=== PATIENT | female | born 1980 | race Hispanic/Latino ===

== ENCOUNTER 2019-02-05 10:56 | Outpatient (CLI) | payer BC, OTHER ==
--- NOTE | 2019-02-05 12:55 | ULT ---
OB ULTRASOUND: 02/05/19 HISTORY: Size and dates and anatomy. FINDINGS: A single live intrauterine gestation is seen with measurements corresponding to an estimated gestatio nal age of 20 weeks, 0 days and BEVERLY at 06/25/19. Estimated weight measures 338 grams or 12 oz. This corresponds to 86th percentile by Hadlock cr iteria. measurements are as follows: BPD 4.79 cm 20 weeks, 3 days HC 17.50 cm 20 weeks, 0 days AC 14.67 cm 20 weeks, 0 days FL 3.34 cm 20 weeks, 3 days heart rate measures 140 beats per minute. Amniotic fluid appears visually adequate. The placent a is posteriorly located without evidence of placenta previa. A three vessel cord, cord insertion, kidneys, bladder, stomach, four chamber heart, lateral norm tricles, cerebellum, spine, lips/nose, upper and lower extremities are visualized. No definite anomalies are seen. IMPRESSION: Single live IUP of 20 weeks estimated gestational age and BEVERLY at 06/25/19. POS: SHANNAN
== END 2019-02-05 10:57 | disposition home or self-care (01) ==
LOC: SCSULT 10:56
PROVIDERS: ATTEND Family Medicine
DX: Z34.82 Encounter for supervision of other normal pregnancy, second trimester (principal); Z3A.20 20 weeks gestation of pregnancy
CPT/HCPCS: 76805

== ENCOUNTER 2019-06-23 19:45 | Inpatient (IN) | payer BC, OTHER ==
[2019-06-23] MEDS ORDERED: Butorphanol Tartrate 1 MG/ML VIAL SLOW IVP PRN (20:34)
[2019-06-23] MEDS ORDERED: Ibuprofen 800 MG TAB PO PRN (20:34)
[2019-06-23] MEDS ORDERED: NS / Oxytocin 40 units/1000ml 1,000 ML IV PRN (20:34)
[2019-06-23] MEDS ORDERED: Ondansetron PF 4 MG/2 ML Vial IVP PRN (20:34)
[2019-06-23] MEDS ORDERED: Lidocaine 1% (PF) 30 ML VIAL SC PRN (20:34)
[2019-06-23] MEDS ORDERED: Promethazine HCl 25 MG/ML VIAL IM PRN (20:34)
[2019-06-23] MEDS ORDERED: Acetaminophen/Codeine 30-300mg Tablet PO PRN ×2 (20:34)
[2019-06-23] MEDS ORDERED: hydrALAZINE 20 MG/ML VIAL SLOW IVP PRN (20:34)
[2019-06-23] MEDS ORDERED: Acetaminophen 500 MG TAB PO PRN (20:34)
[2019-06-23] MEDS ORDERED: Meperidine HCl/PF 25 MG/ML VIAL IM/IV PRN (20:34)
[2019-06-23] MEDS ORDERED: Zolpidem Tartrate 5 MG TAB PO PRN (20:34)
[2019-06-23] MEDS ORDERED: Lactated Ringer's 1,000 ML IV SCH (20:45)
[2019-06-23] MEDS ORDERED: NS w/ Oxytocin 10 units 500 ML IV SCH (20:45)
[2019-06-23] MEDS ORDERED: Penicillin G 2.5 MILL.units 2.5 MILL.UNITS in Premix Bag 1 BAG IVPB SCH (20:45)
[2019-06-23] MEDS ORDERED: Penicillin G Potassium 5 MILL.UNITS in Sodium Chloride 0.9% 100 ML IVPB SCH (20:45)
[2019-06-23] MEDS: Lactated Ringer's 1,000 ML IV SCH (20:58)
[2019-06-23 21:16] LABS: Hemoglobin 11.7 g/dL (12.0-16.0); Mean Corpuscular HGB CONC 34.3 g/dL (32.0-36.0); Mean Corpuscular Hemoglobin 30.6 pg (27.0-31.0); Mean Corpuscular Volume 89.2 fL (78.0-98.0); Mean Platelet Volume 8.8 fL (7.4-10.4); Platelet Count 247 thou/uL (130-400); RBC Distribution Width 12.6 % (11.5-14.5); Red Blood Cell (RBC) Count 3.81 mill/uL (4.20-5.40); White Blood Cell (WBC) Count 8.2 thou/uL (4.8-10.8)
[2019-06-23] MEDS: Misoprostol 100 MCG TAB VAG SCH (21:20)
[2019-06-23 21:35] VITALS: BMI 43.2
[2019-06-23 21:43] LABS: Syphilis Antibody Nonreactive (Nonreactive); Syphilis Antibody Index 0.05 S/CO (<1.00 Non-Reactive)
[2019-06-23 22:46] LABS: Hep B Surf Ag Non-Reactive S/CO (NonReactive)
[2019-06-24] MEDS: Penicillin G 2.5 MILL.units 2.5 MILL.UNITS in Premix Bag 1 BAG IVPB SCH ×2 (02:05→05:09)
[2019-06-24] MEDS: Misoprostol 100 MCG TAB VAG SCH ×3 (02:08→07:04)
[2019-06-24] MEDS ORDERED: Lidocaine 1% (PF) 30 ML VIAL ONE (02:55)
[2019-06-24] MEDS ORDERED: NS / Oxytocin 40 units/1000ml 1,000 ML ONE (02:55)
[2019-06-24] MEDS ORDERED: Fentanyl 4 mcg/Bup 0.1% Cadd 100 ML ONE (04:11)
[2019-06-24] MEDS: Lactated Ringer's 1,000 ML IV SCH (05:09)
[2019-06-24] MEDS ORDERED: Preparation H Ointment 28 GM TUBE PR PRN (07:04)
[2019-06-24] MEDS ORDERED: NS / Oxytocin 40 units/1000ml 1,000 ML IV SCH (07:04)
[2019-06-24] MEDS ORDERED: hydrALAZINE 20 MG/ML VIAL SLOW IVP PRN (07:04)
[2019-06-24] MEDS ORDERED: Bisacodyl 10 MG SUPP PR PRN (07:04)
[2019-06-24] MEDS ORDERED: Milk Of Magnesia 30 ML UDCUP PO PRN (07:04)
[2019-06-24] MEDS ORDERED: Ondansetron PF 4 MG/2 ML Vial IVP PRN (07:04)
[2019-06-24] MEDS ORDERED: diphenhydrAMINE 25 MG CAP PO PRN (07:04)
[2019-06-24] MEDS ORDERED: Promethazine HCl 25 MG/ML VIAL IM PRN (07:04)
[2019-06-24] MEDS ORDERED: Lanolin Ointment 7 GM TUBE TOP PRN (07:04)
[2019-06-24] MEDS ORDERED: Benzocaine-Menthol 82.5 ML CAN TOP PRN (07:04)
[2019-06-24] MEDS: traMADol HCl 50 MG TAB PO PRN (08:57)
[2019-06-24] MEDS: Prenatal Vitamin 1 TAB PO SCH (08:57)
[2019-06-24] MEDS: Docusate Calcium (SURFAK) 240 MG CAP PO SCH ×2 (08:57→21:08)
[2019-06-24] MEDS: Ferrous Sulfate 325 MG TAB PO SCH ×2 (08:59→20:37)
[2019-06-24] MEDS: Ibuprofen 800 MG TAB PO SCH ×3 (08:59→21:08)
[2019-06-25] MEDS: traMADol HCl 50 MG TAB PO PRN (00:05)
[2019-06-25 05:17] LABS: Hemoglobin 11.1 g/dL (12.0-16.0); Mean Corpuscular HGB CONC 34.4 g/dL (32.0-36.0); Mean Corpuscular Volume 90.1 fL (78.0-98.0); Mean Platelet Volume 8.4 fL (7.4-10.4); Platelet Count 213 thou/uL (130-400); RBC Distribution Width 12.7 % (11.5-14.5); Red Blood Cell (RBC) Count 3.57 mill/uL (4.20-5.40); White Blood Cell (WBC) Count 10.9 thou/uL (4.8-10.8)
[2019-06-25] MEDS: Ibuprofen 800 MG TAB PO SCH (06:06)
[2019-06-25] MEDS: Ferrous Sulfate 325 MG TAB PO SCH (08:05)
[2019-06-25] MEDS: Docusate Calcium (SURFAK) 240 MG CAP PO SCH (08:06)
[2019-06-25] MEDS: Prenatal Vitamin 1 TAB PO SCH (08:06)
[2019-06-25 08:27] VITALS: BP 124/74; TEMP 98
== END 2019-06-25 12:06 | disposition home or self-care (01) | DRG 807 ==
LOC: L&D 20:12 → 3SW 06-24 08:50
PROVIDERS: ADMIT Family Medicine; ATTEND Family Medicine
PROC: 10E0XZZ Delivery of Products of Conception, External Approach (ICD-10-PCS; principal; 2019-06-23)
PROC: 3E033VJ Introduction of Other Hormone into Peripheral Vein, Percutaneous Approach (ICD-10-PCS; 2019-06-23)
DX: O99.824 Streptococcus B carrier state complicating childbirth (principal); Z37.0 Single live birth; Z3A.39 39 weeks gestation of pregnancy
CPT/HCPCS: 36415; 85027; 86780; 86850; 86900; 86901; 87340; J0360; J0595; J2001; J2540; J3490